=== PATIENT | female | born 1950 ===

== ENCOUNTER 2021-02-06 06:55 | Day surgery (SDC) | payer OTHER ==
[~2021-02-06 06:55] MED LIST: CRESTOR5 MG PO; NORVASC5 MG PO
[2021-02-06] MEDS ORDERED: PERCOCET 5-3251 EACH PO (12:08)
== END 2021-02-06 16:25 | disposition home or self-care (01) ==
LOC: CIR.AMB 06:55
PROVIDERS: ATTEND Surgery
DX: C73 Malignant neoplasm of thyroid gland (principal)